=== PATIENT | male | born 1960 | race Caucasian/White ===

== ENCOUNTER 2017-06-24 05:12 | Emergency (ER) | payer MEDICAID ==
[~2017-06-24] VITALS: Ht 177.8 cm; Wt 109.0 kg
[2017-06-24] MEDS ORDERED: KETOROLAC 60MG/2ML VIAL IM ONE (06:30)
[2017-06-24 07:10] VITALS: BP 99/46
== END 2017-06-24 07:48 | disposition home or self-care (01) ==
LOC: ER 05:13
DX: M25.561 Pain in right knee (principal); E11.9 Type 2 diabetes mellitus without complications; F17.210 Nicotine dependence, cigarettes, uncomplicated; F15.10 Other stimulant abuse, uncomplicated; V43.52XA Car driver injured in collision with other type car in traffic accident, initial encounter; Y93.89 Activity, other specified; Y92.488 Other paved roadways as the place of occurrence of the external cause
CPT/HCPCS: 73562; 96372; 99284; J1885

== ENCOUNTER 2018-05-01 04:59 | Emergency (ER) | payer MEDICAID ==
[~2018-05-01] VITALS: Ht 175.3 cm; Wt 109.0 kg
[2018-05-01 05:32] VITALS: BP 134/92
== END 2018-05-01 07:03 | disposition home or self-care (01) ==
LOC: ER 04:59
DX: R46.2 Strange and inexplicable behavior (principal); E11.9 Type 2 diabetes mellitus without complications
CPT/HCPCS: 82962; 99283; 99284

== ENCOUNTER 2018-05-01 23:57 | Emergency (ER) | payer MEDICAID ==
[~2018-05-01] VITALS: Ht 170.2 cm; Wt 100.0 kg
[2018-05-02 00:59] LABS: BASOPHILS % 0.3 % (0.0-2.0); HEMATOCRIT. 43.9 % (42.0-52.0); HEMOGLOBIN. 14.8 g/dL (14.0-18.0); LYMPHOCYTES % 31.3 % (20.0-50.0); MEAN CORPUSCULAR HEMOGLOBIN 30.8 pg (28.0-32.0); MEAN CORPUSCULAR VOLUME 91.6 fL (80.0-94.0); MEAN PLATELET VOLUME 7.5 fl (7.4-10.4); MONOCYTES % 5.4 % (2.0-8.0); PLATELET 209 x1000/uL (130-400)
[2018-05-02 01:02] LABS: CHLORIDE 110 mEq/L (98-107)
[2018-05-02 01:06] LABS: ETHANOL BLOOD < 10 mg/dL
[2018-05-02 03:09] LABS: CLARITY URINE CLEAR (CLEAR); COLOR URINE YELLOW (YELLOW); KETONES URINE NEGATIVE (NEGATIVE); LEUKOCYTE ESTERASE URINE NEGATIVE (NEGATIVE); NITRITE URINE NEGATIVE (NEGATIVE); OCCULT BLOOD URINE NEGATIVE (NEGATIVE); PROTEIN URINE NEGATIVE (NEGATIVE); SPECIFIC GRAVITY URINE 1.023 (1.005-1.030)
[2018-05-02 03:42] LABS: *COCAINE SCREEN URINE NEGATIVE (NEGATIVE); METHADONE URINE SCREEN NEGATIVE (NEGATIVE); OPIATES URINE SCREEN NEGATIVE (NEGATIVE); PHENCYCLIDINE URINE SCREEN PRESUMTIVE POSITIVE (NEGATIVE)
[2018-05-02 03:43] LABS: *AMPHETAMINES SCREEN URINE PRESUMTIVE POSITIVE (NEGATIVE); *BARBITURATES SCREEN URINE NEGATIVE (NEGATIVE); *BENZODIAZEPINES SCREEN URINE NEGATIVE (NEGATIVE); CANNABINOID URINE SCREEN NEGATIVE (NEGATIVE)
[2018-05-02 04:13] VITALS: BP 148/74
== END 2018-05-02 04:16 | disposition home or self-care (01) ==
LOC: ER 23:57
DX: F19.10 Other psychoactive substance abuse, uncomplicated (principal); E11.9 Type 2 diabetes mellitus without complications; I10 Essential (primary) hypertension; R41.82 Altered mental status, unspecified
CPT/HCPCS: 36415; 70450; 80053; 80305; 81003; 82962; 85025; 99285; G0482